=== PATIENT | female | born 1995 | race Caucasian/White ===

== ENCOUNTER 2016-10-24 16:58 | Emergency (ER) | payer SELFPAY ==
--- NOTE | 2016-10-24 17:13 | EDM.PDOC ---
ED HPI GENERAL MEDICAL PROBLEM - General Stated Complaint: SEVERE ABDOMINAL PAIN Time Seen by Provider: 10/24/16 17:03 - History of Present Illness INITIAL COMMENTS - FREE TEXT/NARRATIVE: HISTORY AND PHYSICAL: History of present illness: This 20-year-old female she concern of positive urine dip for UTI during a routine physical today for employment she denies other concern Review of systems: As per history of present illness and below otherwise all systems reviewed and negative. Past medical history: As per history of present illness and as reviewed below otherwise noncontributory. Surgical history: As per history of present illness and as reviewed below otherwise noncontributory. Social history: No reported history of drug or alcohol abuse. Family history: As per history of present illness and as reviewed below otherwise noncontributory. Physical exam: HEENT: Atraumatic, normocephalic, pupils reactive, negative for conjunctival pallor or scleral icterus, mucous membranes moist, throat clear, neck supple, nontender, trachea midline. Lungs: Clear to auscultation, breath sounds equal bilaterally, chest nontender. Heart: S1S2, regular, negative for clicks, rubs, or JVD. Abdomen: Soft, nondistended, nontender. Negative for masses or hepatosplenomegaly. Negative for costovertebral tenderness. Pelvis: Stable nontender. Genitourinary: Deferred. Rectal: Deferred. Extremities: Atraumatic, negative for cords or calf pain. Neurovascular unremarkable. Neuro: Awake, alert, oriented. Cranial nerves II through XII unremarkable. Cerebellum unremarkable. Motor and sensory unremarkable throughout. Exam nonfocal. Diagnostics: UA hCG urine call Therapeutics: None Impression: #1 UTI Definitive disposition and diagnosis as appropriate pending reevaluation and review of above. ED ROS GENERAL - Review of Systems Review Of Systems: ROS reveals no pertinent complaints other than HPI. ED EXAM, GENERAL - Physical Exam Exam: See Below (See dictated) Course - Orders/Labs/Meds Orders: Active Orders 24 hr Category Date Time Status CULTURE URINE [RM] Stat Lab 10/24/16 17:04 Uncollected HCG QUALITATIVE,URINE [URCHEM] Stat Lab 10/24/16 17:04 Uncollected UA W/MICROSCOPIC [URIN] Stat Lab 10/24/16 17:04 Uncollected Departure - Departure Time of Disposition: 17:13 Disposition: Home, Self-Care 01 Condition: good Clinical Impression: UTI (urinary tract infection) - Discharge Information Additional Instructions: The following information is given to patients seen in the emergency department who are being discharged to home. This information is to outline your options for follow-up care. We provide all patients seen in our emergency department with a follow-up referral. The need for follow-up, as well as the timing and circumstances, are variable depending upon the specifics of your emergency department visit. If you don't have a primary care physician on staff, we will provide you with a referral. We always advise you to contact your personal physician following an emergency department visit to inform them of the circumstance of the visit and for follow-up with them and/or the need for any referrals to a consulting specialist. The emergency department will also refer you to a specialist when appropriate. This referral assures that you have the opportunity for followup care with a specialist. All of these measure are taken in an effort to provide you with optimal care, which includes your followup. Under all circumstances we always encourage you to contact your private physician who remains a resource for coordinating your care. When calling for followup care, please make the office aware that this follow-up is from your recent emergency room visit. If for any reason you are refused follow-up, please contact the [facility] emergency department at and asked to speak to the emergency department charge nurse. [facility] [address] [place] [id number] Bactrim as prescribed followup primary medical doctor in our clinic above return as needed as discussed - My Orders Last 24 Hours: My Active Orders 10/24/16 17:04 CULTURE URINE [RM] Stat HCG QUALITATIVE,URINE [URCHEM] Stat UA W/MICROSCOPIC [URIN] Stat - Assessment/Plan Last 24 Hours: My Active Orders 10/24/16 17:04 CULTURE URINE [RM] Stat HCG QUALITATIVE,URINE [URCHEM] Stat UA W/MICROSCOPIC [URIN] Stat
[2016-10-24 17:33] VITALS: BP 125/64
== END 2016-10-24 18:44 | disposition home or self-care (01) ==
LOC: MW.ED 16:58
DX: N39.0 Urinary tract infection, site not specified (principal)
CPT/HCPCS: 81001; 81025; 87086; 99283; 99284

== ENCOUNTER 2016-11-11 23:51 | Emergency (ER) | payer SELFPAY ==
[2016-11-12] MEDS ORDERED: Acetaminophen 500 MG Tab PO ONE (01:13)
[2016-11-12] MEDS ORDERED: predniSONE 20 MG Tab PO ONE (01:14)
--- NOTE | 2016-11-12 01:58 | EDM.PDOC ---
ED HPI GENERAL MEDICAL PROBLEM - General Chief Complaint: General Stated Complaint: ALLERGIC REACTION Time Seen by Provider: 11/12/16 00:15 Source of Information: Reports: Patient History Limitations: Reports: No Limitations - History of Present Illness INITIAL COMMENTS - FREE TEXT/NARRATIVE: HISTORY AND PHYSICAL: History of present illness: [20-year-old female presents emergency department concerned that she's having allergic reaction. Patient states her tongue was swollen earlier today but now is completely resolved. She thinks she might of a virus could she had a sore spot on her tongue. No difficulty breathing or swallowing or speaking no hives. Patient has a photo in her phone of when her tongue was swollen earlier today Review of systems: As per history of present illness and below otherwise all systems reviewed and negative. Past medical history: As per history of present illness and as reviewed below otherwise noncontributory. Surgical history: As per history of present illness and as reviewed below otherwise noncontributory. Social history: No reported history of drug or alcohol abuse. Family history: As per history of present illness and as reviewed below otherwise noncontributory. Physical exam: HEENT: Atraumatic, normocephalic, pupils reactive, negative for conjunctival pallor or scleral icterus, mucous membranes moist, throat clear, neck supple, nontender, trachea midline. Lungs: Clear to auscultation, breath sounds equal bilaterally, chest nontender. Heart: S1S2, regular, negative for clicks, rubs, or JVD. Abdomen: Soft, nondistended, nontender. Negative for masses or hepatosplenomegaly. Negative for costovertebral tenderness. Pelvis: Stable nontender. Genitourinary: Deferred. Rectal: Deferred. Extremities: Atraumatic, negative for cords or calf pain. Neurovascular unremarkable. Neuro: Awake, alert, oriented. Cranial nerves grossly unremarkable. Cerebellum unremarkable. Motor and sensory unremarkable throughout. Exam nonfocal. Diagnostics: [] Therapeutics: [] Impression: [] Plan: [Signs and symptoms consistent with mild angioedema of the tongue earlier today with spontaneous resolution. Patient with no history of angioedema. Identifiable allergic stimulus patient is currently asymptomatic and well- appearing . Picture patient provided was consistent with mild angioedema of the tongue however this has resolved completely and patient had no difficulty with her airway at any time. Discussed with her possibility of idiopathic angioedema versus allergic angioedema. Dose of steroids given in ED and prescription for prednisone dispensed. Patient aware of critical importance of close follow-up with her primary care for reevaluation and to arrange eventual allergy testing. She agrees with outpatient follow-up and strict return precautions given Definitive disposition and diagnosis as appropriate pending reevaluation and review of above. Throat Pain Score (Numeric/FACES): 6 - Related Data Allergies Allergy/AdvReac Type Severity Reaction Status Date / Time guaifenesin [From Robitussin] Allergy Other Verified 11/12/16 00:15 Home Meds: Home Meds Prednisone [IMW: predniSONE] 60 mg PO WITHBREAKFAST #7 tab 11/12/16 [Rx] Past Medical History - Past Health History Medical/Surgical History: Denies Medical/Surgical History - Infectious Disease History Infectious Disease History: Reports: Chicken Pox Social & Family History - Family History Family Medical History: Noncontributory - Tobacco Use Smoking Status *Q: Current Every Day Smoker Years of Tobacco use: 8 Packs/Tins Daily: 1 Second Hand Smoke Exposure: No - Caffeine Use Caffeine Use: Reports: None - Recreational Drug Use Recreational Drug Use: No ED ROS GENERAL - Review of Systems Review Of Systems: See Below (Per history of present illness) ED EXAM, GENERAL - Physical Exam Exam: See Below (History of present illness) Course - Vital Signs Last Recorded V/S: Last Vital Signs Temp 36.6 C 11/12/16 02:41 Pulse 76 11/12/16 02:41 Resp 16 11/12/16 02:41 BP 120/56 L 11/12/16 02:41 Pulse Ox 99 11/12/16 02:41 - Orders/Labs/Meds Orders: Active Orders 24 hr Category Date Time Status CULTURE STREP A CONFIRMATION [RM] Stat Lab 11/12/16 01:15 Results STREP SCRN A RAPID W CULT CONF [RM] Stat Lab 11/12/16 01:15 Results Meds: Medications Discontinued Medications Generic Name Dose Route Start Last Admin Trade Name Willa PRN Reason Stop Dose Admin Acetaminophen 1,000 mg 11/12/16 01:13 11/12/16 01:18 Tylenol Extra Strength PO 11/12/16 01:14 1,000 mg ONETIME ONE Administration Prednisone 60 mg 11/12/16 01:14 11/12/16 01:19 Prednisone PO 11/12/16 01:15 60 mg ONETIME ONE Administration Departure - Departure Time of Disposition: 01:55 Disposition: Home, Self-Care 01 Condition: good Clinical Impression: Angioedema - Discharge Information Prescriptions: Prednisone [IMW: predniSONE] 60 mg PO WITHBREAKFAST #7 tab Instructions: Angioedema, [id number] Referrals: PCP,None [Primary Care Provider] - Forms: ED Department Discharge Additional Instructions: It appears that you've experienced angioedema of your tongue earlier today. Edema is one fluid enters the tissue and makes it swollen angioedema sometimes happens as a result of certain medications however in your case is either a result of allergic reaction with spontaneous resolution, or just unexplained angioedema which sometimes happens. There is some element of allergic angioedema steroids and Benadryl would be helpful as well as Pepcid 20 mg twice a day [id number]. Follow up with your for reevaluation and to arrange allergy testing as an outpatient after resolution of her symptoms. Immediately for difficulty breathing or worsening symptoms voice changes or difficulty swallowing - My Orders Last 24 Hours: My Active Orders 11/12/16 01:15 CULTURE STREP A CONFIRMATION [RM] Stat STREP SCRN A RAPID W CULT CONF [] Stat - Assessment/Plan Last 24 Hours: My Active Orders 11/12/16 01:15 CULTURE STREP A CONFIRMATION [RM] Stat STREP SCRN A RAPID W CULT CONF [] Stat
[2016-11-12 02:42] VITALS: BP 120/56
== END 2016-11-12 02:11 | disposition home or self-care (01) ==
LOC: MW.ED 23:51
DX: T78.3XXA Angioneurotic edema, initial encounter (principal); F17.210 Nicotine dependence, cigarettes, uncomplicated; Z88.8 Allergy status to other drugs, medicaments and biological substances
CPT/HCPCS: 87081; 87880; 99283; A9270